=== PATIENT | female | born 1975 | race Caucasian/White ===

== ENCOUNTER → 2017-12-04 | Day surgery (SDC) | payer OTHER ==
[~2017-12-04] MED LIST: FENTANYL CITRATE/PF 100MCG/2 ML INJ ONE; HYOSCYAMINE SULFATE 0.5 MG/ML AMP ONE; LIDOCAINE HCL 2% LOCAL INJ 5 ML SDV VIAL INJ ONE; METOPROLOL TARTRATE INJ 1 MG/ML VIAL ONE; MIDAZOLAM HCL 2 MG/2 ML VIAL ONE; OMEPRAZOLE20 MG PO; PANTOPRAZOLE 40 MG 10ML VIAL ONE; PROPOFOL IV EMULSION 10 MG/ML 20 ML VIAL ONE; PROPOFOL IV EMULSION 10 MG/ML 50 ML VIAL ONE; XANAX0.5 MG PO
[2017-12-04 15:31] LABS: WBC,FECAL (FECAL LACTOFERRIN) NEGATIVE (NEGATIVE)
--- NOTE | 2017-12-04 15:39 | Operative Report ---
DATE OF PROCEDURE: December 04, 2017 REFERRING PHYSICIAN: Dr. Andres Romero PROCEDURES PERFORMED 1. Esophagogastroduodenoscopy with biopsies. 2. Colonoscopy with biopsies. INDICATIONS FOR EGD: Upper abdominal pain, excessive belching, bloating. INDICATIONS FOR COLONOSCOPY: Change of bowel habits, alternating bouts of constipation and diarrhea. MEDICATION: Patient was done under MAC. Please see anesthesiologist's note. PROCEDURE: With the patient in the left lateral decubitus position, the flexible fiberoptic Olympus gastroscope was introduced into the esophagus under direct visualization without any difficulty. There was some patchy erythema noted in the distal esophagus. A small diverticulum was noted in the distal esophagus. The scope was then advanced with ease into the stomach. Mucosa overlying the antrum and the body revealed some patchy erythema and low-grade edema, and biopsies were obtained and sent to stain for H. pylori. Pylorus appeared to be of normal contour and shape. It was intubated with ease, and the scope was advanced all the way to the 2nd portion of the duodenum. The scope was then withdrawn slowly. Mucosa overlying the proximal 2nd portion grossly appeared to be within normal limits. Biopsies were obtained to rule out sprue. Mucosa overlying the duodenal bulb appeared to be within normal limits. The scope was then withdrawn back into the stomach and retroflexed. Mucosa overlying the fundus and the cardia appeared to be within normal limits. The scope was then straightened out. The stomach was decompressed. Scope was subsequently withdrawn. Patient tolerated the procedure well. IMPRESSION 1. Distal esophagitis. 2. Small diverticulum, distal esophagus. 3. Gastritis, biopsied. Biopsies sent to stain for H. pylori. 4. Rule out sprue. PLAN: Follow up histology. Initiate Protonix 40 mg 1 p.o. q.a.m. a.c. The patient was then turned around. After adequate lubrication of the anal canal, a flexible fiberoptic Olympus colonoscope was inserted into the rectum with ease and advanced all the way to the cecum. The mucosa overlying the cecum grossly appeared to be within normal limits. The ileocecal valve was intubated. The scope was advanced into the terminal ileum. Biopsies were obtained. The scope was then withdrawn back into the colon. It was then withdrawn slowly. Mucosa overlying the ascending, transverse, descending and sigmoid revealed some patchy areas of erythema and low-grade edema, and random biopsies were obtained. The scope was then retroflexed into the distal rectum. Small internal hemorrhoids were noted, none of which was actively bleeding. The scope was then straightened out. The rectosigmoid area as well as the distal rectal area were decompressed. Scope was subsequently withdrawn after securing an adequate stool specimen that was sent for the appropriate stool studies. Patient tolerated the procedure well. IMPRESSION 1. Mild patchy colitis. 2. Internal hemorrhoids, none actively bleeding. PLAN: Follow up histology. Follow up stool studies. Initiate Flagyl 500 mg 1 p.o. q.i.d. times 10 days and Bentyl 10 mg 1 p.o. t.i.d. Job#: [id number] cc:ANDRES ROMERO MD
[2017-12-05 13:30] LABS: C DIFFICILE TOXIN A&B AMP PROB NEGATIVE (NEGATIVE)
== END | disposition home or self-care (01) ==
LOC: OR 11:53
PROVIDERS: ATTEND Internal Medicine Gastroenterology
DX: K21.9 Gastro-esophageal reflux disease without esophagitis (principal); K52.9 Noninfective gastroenteritis and colitis, unspecified; K59.00 Constipation, unspecified; K20.9 Esophagitis, unspecified; K22.5 Diverticulum of esophagus, acquired; K64.8 Other hemorrhoids; D72.820 Lymphocytosis (symptomatic); N20.0 Calculus of kidney
CPT/HCPCS: 43239; 45380; 81025; 83630; 83993; 87045; 87177; 87328; 87493; J1980; J2001; J2250

== ENCOUNTER → 2020-06-29 | Outpatient (CLI) | payer OTHER ==
[~2020-06-29] MED LIST changes: -FENTANYL CITRATE/PF 100MCG/2 ML INJ ONE; -HYOSCYAMINE SULFATE 0.5 MG/ML AMP ONE; -LIDOCAINE HCL 2% LOCAL INJ 5 ML SDV VIAL INJ ONE; -METOPROLOL TARTRATE INJ 1 MG/ML VIAL ONE; -MIDAZOLAM HCL 2 MG/2 ML VIAL ONE; -PANTOPRAZOLE 40 MG 10ML VIAL ONE; -PROPOFOL IV EMULSION 10 MG/ML 20 ML VIAL ONE; -PROPOFOL IV EMULSION 10 MG/ML 50 ML VIAL ONE
--- NOTE | 2020-06-29 11:12 | Diagnostic Imaging Report ---
EXAM: US GALLBLADDER DATE: 06/29/2020 10:44 AM INDICATION: ^UPPER ABDOMEN PAIN COMPARISON: CT dated 12/16/2016 TECHNIQUE: Transverse and longitudinal saez scale and color doppler sonographic images of the right upper quadrant were obtained. FINDINGS: LIVER 13.5 cm in the right midclavicular line. Liver is diffusely echogenic with normal contour, no masses. GALLBLADDER No gallbladder wall thickening, distension, stone, or pericholecystic fluid. Negative reported sonographic Anne's sign. BILE DUCTS No intra nor extra-hepatic biliary dilation. Common bile duct measures 0.3cm PANCREAS: Visualized portions are normal. RIGHT KIDNEY: 10.3 cm Echogenicity: Normal Collecting System: No hydronephrosis Stones: None Cyst/Mass: None VESSELS: Aorta: Visualized portions are within normal size limits Inferior Vena Cava: Visualized portions are normal Main Portal Vein: 1.0 cm, normal size with hepatopetal flow. FREE FLUID: None IMPRESSION: 1. Negative for cholelithiasis or biliary dilatation. 2. Negative for hydronephrosis. 3. Hepatic steatosis. Signed by: Jamshid Pop MD on 06/29/2020 11:09 AM
--- NOTE | 2020-06-29 20:35 | Diagnostic Imaging Report ---
Hepatobiliary Scan with Gallbladder Ejection Fraction Clinical information: Upper abdominal pain Report: Following intravenous administration of 6.3 millicuries of Tc-99m mebrofenin, dynamic images of the abdomen in the anterior projection were obtained through 21 minutes. Sincalide (CCK analog) 1.4 micrograms was administered intravenously over 30 minutes with additional imaging for determination of gallbladder ejection fraction. Perfusion to the liver is normal. Extraction of tracer from the blood pool by the liver parenchyma is normal. Tracer is seen promptly within the biliary tract. The gallbladder begins to fill by 4 minutes post-injection of tracer and fills adequately. Tracer is seen in the small bowel by 20 minutes. The gallbladder ejection fraction with administration of sincalide is 96% (normal greater than 40%). Impression: 1. Filling of the gallbladder excludes the diagnosis of acute cystic duct obstruction/acute cholecystitis. 2. Normal gallbladder ejection fraction of 96% does not support the clinical diagnosis of chronic cholecystitis/gallbladder dyskinesia. Signed by: Dr. Kesha Morrison M.D. on 06/29/2020 8:31 PM
== END ==
LOC: US 10:17
PROVIDERS: ATTEND Internal Medicine Gastroenterology
DX: R10.10 Upper abdominal pain, unspecified (principal)
CPT/HCPCS: 76705; 78227; 81025; A9537

== ENCOUNTER → 2020-07-14 | Day surgery (SDC) | payer OTHER ==
[~2020-07-14] MED LIST changes: +BENTYL PO; +FENTANYL CITRATE/PF 100MCG/2 ML INJ ONE; +HYOSCYAMINE 0.125 MG TAB ONE; +LIDOCAINE HCL 2% LOCAL INJ 5 ML SDV VIAL INJ ONE; +MIDAZOLAM HCL 2 MG/2 ML VIAL ONE; +PANTOPRAZOLE 40 MG 10ML VIAL ONE; +PROPOFOL IV EMULSION 10 MG/ML 20 ML VIAL ONE; +PROTONIX20 MG PO
[2020-07-14 15:30] LABS: WBC,FECAL (FECAL LACTOFERRIN) NEGATIVE (NEGATIVE)
--- NOTE | 2020-07-14 16:00 | Operative Report ---
DATE OF PROCEDURE: 07/14/2020 SURGEON: Andrew Patel MD PROCEDURES: EGD with biopsies, and colonoscopy with biopsies. INDICATIONS FOR EGD: Upper abdominal pain, bloating, heartburn indigestion. INDICATIONS FOR COLONOSCOPY: Crampy lower abdominal pain, diarrhea. MEDICATIONS: The patient was done under MAC, please see anesthesiologist's note. PROCEDURE IN DETAIL: With the patient in left lateral decubitus position, a flexible fiberoptic Olympus gastroscope was introduced into the esophagus under direct visualization without any difficulty. There was some patchy erythema noted in distal esophagus. There was a small diverticulum was noted in the distal esophagus. The scope was then advanced with ease into the stomach, mucosa overlying the antrum and the body revealed some patchy erythema and [id number] edema, and biopsies were obtained, sent to stain for H. pylori. Pylorus was of normal contour and shape, it was intubated with ease and the scope was advanced all the way to the second portion of the duodenum. Biopsies were obtained from the proximal second portion and the duodenal bulb to rule out sprue. The scope was then withdrawn back into the stomach and retroflexed, and mucosa overlying the fundus and cardia appeared to be within normal limits. The scope was then straightened out, it was subsequently withdrawn. The patient tolerated the procedure well. IMPRESSION: 1. Distal esophagitis, mild. 2. Small distal esophageal diverticulum. 3. Gastritis, biopsied, biopsies sent to stain for H. pylori. 4. Rule out sprue. PLAN: 1. Follow up histology. 2. Increase Protonix to 40 mg one p.o. a.c. b.i.d. DESCRIPTION OF PROCEDURE: The patient was then turned around after adequate lubrication of the anal canal, a flexible fiberoptic Olympus colonoscope was inserted into the rectum with ease and advanced all the way to the cecum. The mucosa overlying the cecum appeared to be within normal limits. The ileocecal valve was intubated and the scope was advanced into the terminal ileum. Biopsies were obtained. The scope was then withdrawn back into the colon. It was then withdrawn slowly, mucosa overlying the ascending, transverse, descending, and sigmoid colon grossly appeared to be within normal limits. Biopsies were obtained to rule out microscopic colitis. The scope was then retroflexed into the distal rectum and small internal hemorrhoids were noted, none of which was actively bleeding. The scope was then straightened out, it was subsequently withdrawn after securing an adequate specimen, that was sent for the appropriate stool studies. The patient tolerated the procedure well. IMPRESSION: 1. Rule out microscopic colitis. 2. Small internal hemorrhoids, none actively bleeding. PLAN: 1. Follow up histology. 2. Follow up stool studies. 3. Initiate Bentyl 20 mg one p.o. t.i.d. 4. The patient might benefit from a followup colonoscopy in 5 to 10 years. Andrew Patel MD [facility] [place] /[id number] cc: Andres Pop MD
[2020-07-15 14:55] LABS: C DIFFICILE TOXIN A&B AMP PROB NEGATIVE (NEGATIVE)
[2020-07-17 06:12] LABS: ENDOMYSIAL ANTIBODIES, IGA Negative (Negative)
== END | disposition home or self-care (01) ==
LOC: OR 11:05
PROVIDERS: ATTEND Internal Medicine Gastroenterology
DX: K20.9 Esophagitis, unspecified (principal); K29.70 Gastritis, unspecified, without bleeding; K22.5 Diverticulum of esophagus, acquired; K64.8 Other hemorrhoids; K29.50 Unspecified chronic gastritis without bleeding; K21.9 Gastro-esophageal reflux disease without esophagitis; Z87.442 Personal history of urinary calculi; Z01.812 Encounter for preprocedural laboratory examination; Z11.59 Encounter for screening for other viral diseases
CPT/HCPCS: 43239; 45380; 81025; 82784; 83516; 83630; 83993; 86256; 87045; 87177; 87493; C9113; J2001; J2250; J2704; J3010; U0002; 45378